=== PATIENT | male | born 1945 | race Caucasian/White ===

== ENCOUNTER 2019-05-13 19:35 | Emergency (ER) | payer OTHER ==
[2019-05-13] MEDS ORDERED: Ketorolac 30 MG/ML SDV IVPUSH ONE ×2 (19:57→21:48)
[2019-05-13] MEDS ORDERED: Sodium Chloride 0.9% 1,000 ML IV ONE (19:57)
--- NOTE | 2019-05-13 19:57 | EDM.PDOC ---
ED HPI GENERAL MEDICAL PROBLEM - General Chief Complaint: Back Pain or Injury Stated Complaint: PAIN ON LOWER RT SIDE OF BACK Time Seen by Provider: 05/13/19 19:57 Source of Information: Reports: Patient History Limitations: Reports: No Limitations - History of Present Illness INITIAL COMMENTS - FREE TEXT/NARRATIVE: HISTORY AND PHYSICAL: History of present illness: Review of systems: As per history of present illness and below otherwise all systems reviewed and negative. Past medical history: As per history of present illness and as reviewed below otherwise noncontributory. Surgical history: As per history of present illness and as reviewed below otherwise noncontributory. Social history: See social history for further information Family history: As per history of present illness and as reviewed below otherwise noncontributory. Physical exam: General: HEENT: Atraumatic, normocephalic, pupils equal and reactive bilaterally, negative for conjunctival pallor or scleral icterus, mucous membranes moist, TMs normal bilaterally, throat clear, neck supple, nontender, trachea midline. No drooling or trismus noted. No meningeal signs. No hot potato voice noted. Lungs: Clear to auscultation, breath sounds equal bilaterally, chest nontender. Heart: S1S2, regular rate and rhythm without overt murmur Abdomen: Soft, nondistended, nontender. Negative for masses or hepatosplenomegaly. Negative for costovertebral tenderness. Pelvis: Stable nontender. Genitourinary: Deferred. Rectal: Deferred. Skin: Intact, warm, dry. No lesions or rashes noted. Extremities: Atraumatic, moves all extremities per self without difficulty or deficits, negative for cords or calf pain. Neurovascular unremarkable. Neuro: Awake, alert, oriented. Cranial nerves II through XII unremarkable. Cerebellum unremarkable. Motor and sensory unremarkable throughout. Exam nonfocal. Notes: Supportive care measures were reviewed and discussed. Voices understanding and is agreeable to plan of care. Denies any further questions or concerns at this time. Diagnostics: Therapeutics: Prescription: Impression: Plan: Definitive disposition and diagnosis as appropriate pending reevaluation and review of above. Right Flank Pain Score (Numeric/FACES): 7 - Related Data Allergies Allergy/AdvReac Type Severity Reaction Status Date / Time No Known Allergies Allergy Verified 05/13/19 19:55 Home Meds: Home Meds Aspirin [[place] Aspirin EC] 81 mg PO DAILY 03/25/16 [History] Chlorthalidone 25 mg PO DAILY 03/25/16 [History] Krill/Om-3/DHA/EPA/Phospho/Ast [Krill Oil 1,000 mg Softgel] 1 tab PO DAILY 03/25 [History] Losartan Potassium 100 mg PO DAILY 03/25/16 [History] Multivitamin [Multivitamins] 1 tab PO DAILY 03/25/16 [History] Potassium Chloride [Klor-Con 10] 10 meq PO DAILY 03/25/16 [History] Terazosin HCl [Terazosin] 2 mg PO DAILY 03/25/16 [History] amLODIPine [Norvasc] 5 mg PO DAILY 03/25/16 [History] Past Medical History HEENT History: Reports: Other (See Below) Other HEENT History: top and bottom partial Cardiovascular History: Reports: High Cholesterol, Hypertension Respiratory History: Reports: None Gastrointestinal History: Reports: Colon Polyp Genitourinary History: Reports: Renal Calculus Other Genitourinary History: hx kidney stones Musculoskeletal History: Reports: None Psychiatric History: Reports: None Endocrine/Metabolic History: Reports: None Hematologic History: Reports: None Immunologic History: Reports: None Oncologic (Cancer) History: Reports: None Dermatologic History: Reports: None - Past Surgical History Head Surgeries/Procedures: Reports: None Other Neurological Surgeries/Procedures: hx neck surgery fusion with cadaver bone Course - Vital Signs Last Recorded V/S: Last Vital Signs Temp 97.9 F 05/13/19 19:53 Pulse 71 05/13/19 19:53 Resp 18 05/13/19 19:53 BP 117/78 05/13/19 19:53 Pulse Ox 96 05/13/19 19:53 Departure - Discharge Information Referrals: PCP,None [Primary Care Provider] -
[2019-05-13] MEDS ORDERED: Tamsulosin 0.4 MG Cap.ER PO ONE (20:00)
--- NOTE | 2019-05-13 20:02 | EDM.PDOC ---
ED HPI GENERAL MEDICAL PROBLEM - General Chief Complaint: Back Pain or Injury Stated Complaint: PAIN ON LOWER RT SIDE OF BACK Time Seen by Provider: 05/13/19 19:57 - History of Present Illness INITIAL COMMENTS - FREE TEXT/NARRATIVE: HISTORY AND PHYSICAL: History of present illness: Patient is a 74-year-old male with history of urolithiasis was diagnosed and treated 2 weeks prior presents with a concern of low back pain is of some mild nausea no vomiting he denies trauma fever chills or other complaints. Review of systems: As per history of present illness and below otherwise all systems reviewed and negative. Past medical history: As per history of present illness and as reviewed below otherwise noncontributory. Surgical history: As per history of present illness and as reviewed below otherwise noncontributory. Social history: No reported history of drug or alcohol abuse. Family history: As per history of present illness and as reviewed below otherwise noncontributory. Physical exam: HEENT: Atraumatic, normocephalic, pupils reactive, negative for conjunctival pallor or scleral icterus, mucous membranes moist, throat clear, neck supple, nontender, trachea midline. Lungs: Clear to auscultation, breath sounds equal bilaterally, chest nontender. Heart: S1S2, regular, negative for clicks, rubs, or JVD. Abdomen: Soft, nondistended, nontender. Negative for masses or hepatosplenomegaly. Bilateral costovertebral tenderness. Pelvis: Stable nontender. Genitourinary: Deferred. Rectal: Deferred. Extremities: Atraumatic, negative for cords or calf pain. Neurovascular unremarkable. Neuro: Awake, alert, oriented. Cranial nerves II through XII unremarkable. Cerebellum unremarkable. Motor and sensory unremarkable throughout. Exam nonfocal. Diagnostics: CBC CMP UA CT abdomen and pelvis Therapeutics: Saline 1 L bolus and Toradol 30 mg IV Flomax 0.4 mg by mouth Impression: #1 flank pain #2 history of urolithiasis Definitive disposition and diagnosis as appropriate pending reevaluation and review of above. Right Flank Pain Score (Numeric/FACES): 7 - Related Data Allergies Allergy/AdvReac Type Severity Reaction Status Date / Time No Known Allergies Allergy Verified 05/13/19 19:55 Home Meds: Home Meds Aspirin [[place] Aspirin EC] 81 mg PO DAILY 03/25/16 [History] Chlorthalidone 25 mg PO DAILY 03/25/16 [History] Krill/Om-3/DHA/EPA/Phospho/Ast [Krill Oil 1,000 mg Softgel] 1 tab PO DAILY 03/25 [History] Losartan Potassium 100 mg PO DAILY 03/25/16 [History] Multivitamin [Multivitamins] 1 tab PO DAILY 03/25/16 [History] Potassium Chloride [Klor-Con 10] 10 meq PO DAILY 03/25/16 [History] Terazosin HCl [Terazosin] 2 mg PO DAILY 03/25/16 [History] amLODIPine [Norvasc] 5 mg PO DAILY 03/25/16 [History] Past Medical History HEENT History: Reports: Other (See Below) Other HEENT History: top and bottom partial Cardiovascular History: Reports: High Cholesterol, Hypertension Respiratory History: Reports: None Gastrointestinal History: Reports: Colon Polyp Genitourinary History: Reports: Renal Calculus Other Genitourinary History: hx kidney stones Musculoskeletal History: Reports: None Psychiatric History: Reports: None Endocrine/Metabolic History: Reports: None Hematologic History: Reports: None Immunologic History: Reports: None Oncologic (Cancer) History: Reports: None Dermatologic History: Reports: None - Past Surgical History Head Surgeries/Procedures: Reports: None Other Neurological Surgeries/Procedures: hx neck surgery fusion with cadaver bone Social & Family History - Family History Family Medical History: Noncontributory - Tobacco Use Smoking Status *Q: Current Every Day Smoker Years of Tobacco use: 50 Packs/Tins Daily: 1 - Recreational Drug Use Recreational Drug Use: No ED ROS GENERAL - Review of Systems Review Of Systems: ROS reveals no pertinent complaints other than HPI. ED EXAM, GENERAL - Physical Exam Exam: See Below (See dictation) Course - Vital Signs Last Recorded V/S: Last Vital Signs Temp 36.6 C 05/13/19 19:53 Pulse 71 05/13/19 19:53 Resp 18 05/13/19 19:53 BP 117/78 05/13/19 19:53 Pulse Ox 96 05/13/19 19:53 - Orders/Labs/Meds Orders: Active Orders 24 hr Category Date Time Status Sodium Chloride 0.9% [Normal Saline] 1,000 ml Med 05/13/19 19:57 Active IV STAT Medication Orders Sodium Chloride (Normal Saline) 1,000 mls @ 150 mls/hr IV STAT ONE Stop: 05/14/19 02:36 Last Admin: 05/13/19 20:28 Dose: 150 mls/hr Labs: Laboratory Tests 05/13/19 05/13/19 05/13/19 Range/Units 20:15 20:15 20:35 WBC 15.06 H (4.0-11.0) K/uL RBC 5.30 (4.50-5.90) M/uL Hgb 16.6 (13.0-17.0) g/dL Hct 46.9 (38.0-50.0) % MCV 88.5 (80.0-98.0) fL MCH 31.3 (27.0-32.0) pg MCHC 35.4 (31.0-37.0) g/dL RDW Std Deviation 44.5 (28.0-62.0) fl RDW Coeff of Anthony 14 (11.0-15.0) % Plt Count 204 (150-400) K/uL MPV 10.50 (7.40-12.00) fL Neut % (Auto) 79.0 (48.0-80.0) % Lymph % (Auto) 10.2 L (16.0-40.0) % [place] % (Auto) 10.4 (0.0-15.0) % Eos % (Auto) 0.3 (0.0-7.0) % Baso % (Auto) 0.1 (0.0-1.5) % Neut # (Auto) 11.9 H (1.4-5.7) K/uL Lymph # (Auto) 1.5 (0.6-2.4) K/uL [place] # (Auto) 1.6 H (0.0-0.8) K/uL Eos # (Auto) 0.0 (0.0-0.7) K/uL Baso # (Auto) 0.0 (0.0-0.1) K/uL Nucleated RBC % 0.0 /100WBC Nucleated RBCs # 0 K/uL Sodium 139 (136-148) mmol/L Potassium 3.7 (3.5-5.1) mmol/L Chloride 103 (98-107) mmol/L Carbon Dioxide 25.5 (21.0-32.0) mmol/L BUN 21 H (7.0-18.0) mg/dL Creatinine 1.5 H (0.8-1.3) mg/dL Est Cr Clr Drug Dosing 48.86 mL/min Estimated GFR (MDRD) 46.0 ml/min Glucose 103 (74-106) mg/dL Calcium 9.3 (8.5-10.1) mg/dL Total Bilirubin 0.8 (0.2-1.0) mg/dL AST 20 (15-37) IU/L ALT 26 (14-63) IU/L Alkaline Phosphatase 86 (46-116) U/L Total Protein 7.6 (6.4-8.2) g/dL Albumin 3.8 (3.4-5.0) g/dL Globulin 3.8 (2.6-4.0) g/dL Albumin/Globulin Ratio 1.0 (0.9-1.6) Urine Color YELLOW Urine Appearance HAZY Urine pH 7.0 (5.0-8.0) Ur Specific [place] 1.015 (1.001-1.035) Urine Protein NEGATIVE (NEGATIVE) mg/dL Urine Glucose (UA) NEGATIVE (NEGATIVE) mg/dL Urine Ketones 15 H (NEGATIVE) mg/dL Urine Occult Blood LARGE H (NEGATIVE) Urine Nitrite NEGATIVE (NEGATIVE) Urine Bilirubin NEGATIVE (NEGATIVE) Urine Urobilinogen 0.2 (<2.0) EU/dL Ur Leukocyte Esterase NEGATIVE (NEGATIVE) Urine RBC 50-60 (0-2/HPF) Urine WBC 0-3 (0-5/HPF) Ur Epithelial Cells OCCASIONAL (NONE-FEW) Urine Bacteria FEW (NEGATIVE) Meds: Medications Generic Name Dose Route Start Last Admin Trade Name Yoshi PRN Reason Stop Dose Admin Sodium Chloride 1,000 mls @ 150 mls/hr 05/13/19 19:57 05/13/19 20:28 Normal Saline IV 05/14/19 02:36 150 mls/hr STAT ONE Administration Discontinued Medications Generic Name Dose Route Start Last Admin Trade Name Yoshi PRN Reason Stop Dose Admin Ketorolac Tromethamine 30 mg 05/13/19 19:57 05/13/19 20:37 Toradol IVPUSH 05/13/19 19:58 Not Given ONETIME ONE Tamsulosin HCl 0.4 mg 05/13/19 20:00 05/13/19 20:28 Flomax PO 05/13/19 20:01 0.4 mg ONETIME ONE Administration Departure - Departure Time of Disposition: 21:28 Disposition: DC/Tfer to Acute Hospital 02 Condition: Good Clinical Impression: Obstructive uropathy - Discharge Information Referrals: PCP,None [Primary Care Provider] - Forms: ED Department Discharge
--- NOTE | 2019-05-13 20:43 | CT ---
INDICATION: Right flank pain. COMPARISON: CT of the abdomen and pelvis from 02/28/2013 TECHNIQUE: CT examination of the abdomen and pelvis was performed without contrast enhancement using 3 mm thick axial sections from the lung bases through the pubic symphysis. Oral contrast was not administered. Please note that all CT scans at this facility use dose modulation, iterative reconstruction, and/or weight-based dosing when appropriate to reduce radiation dose to as low as reasonably achievable. FINDINGS: In the abdomen, the unenhanced liver, spleen, pancreas, and adrenals are normal in appearance. There is new moderate right hydronephrosis produced by a right proximal ureteral calculus measuring 6 x 5 millimeters located at the superior L4 level. There is moderate right perinephric stranding representing pyelo interstitial backflow. The previously seen right UVJ calculus is no longer present, with no sign of dilatation of the right ureter beyond the calculus described above. There is increased size of several nonobstructive calculi in the lower pole of the right kidney, the largest measuring 6 millimeters in length. There is a new tiny punctate 2 millimeter nonobstructive calculus in the interpolar right kidney. On the left, there is increased size of the nonobstructive calculus in the lower pole measuring 6 millimeters in diameter. There is no sign of any additional left renal or ureteral calculi. There is no sign of left hydronephrosis or hydroureter. The gallbladder is normal in appearance. The abdominal aorta is normal in caliber with no sign of dilatation. There is no sign of retroperitoneal mass or adenopathy. The stomach, loops of small bowel, and colon in the abdomen are normal in appearance. In the pelvis, the appendix is nonvisualized, but there is no sign of an inflammatory process in the area of the appendix. The loops of small bowel and colon in the pelvis are normal in appearance. The prostate remains mildly enlarged but otherwise is normal in appearance. There are 2 new bladder calculi, 1 located on the right measuring 5 millimeters in length and the other located on the left measuring 3 millimeters. The urinary bladder is otherwise normal in appearance. There is no sign of pelvic or inguinal mass or adenopathy. The lung bases are clear. There is mild scoliosis of the lumbar spine convex towards the left. There is stable mild L5-S1 disc degenerative disease. IMPRESSION: CT of the abdomen shows moderate right hydronephrosis produced by a new 6 x 5 millimeter right proximal ureteral calculus located at the superior L4 level. The previously seen right UVJ calculus has passed. Increase in size of nonobstructive calculi in the lower pole of the right kidney and the nonobstructive calculus in the lower pole of left kidney. New tiny nonobstructive calculus in the interpolar right kidney. CT of the pelvis shows 2 new small bladder calculi. No change in mild enlargement of the prostate. Please note that all CT scans at this facility use dose modulation, iterative reconstruction, and/or weight-based dosing when appropriate to reduce radiation dose to as low as reasonably achievable. Dictated by Kamar Mcconnell MD @ May 13 2019 8:28PM Signed by Dr. Kamar Mcconnell @ May 13 2019 8:41PM
[2019-05-13] MEDS ORDERED: Ondansetron 4 MG/2 ML SDV IVPUSH ONE (21:35)
[2019-05-13] MEDS ORDERED: HYDROmorphone 1 MG/ML Syringe IVPUSH ONE (21:35)
[2019-05-14] MEDS ORDERED: HYDROmorphone 1 MG/ML Syringe IVPUSH ONE ×3 (00:20→03:46)
[2019-05-14] MEDS ORDERED: Ketorolac 15 MG/ML SDV IVPUSH ONE (03:47)
[2019-05-14 03:59] VITALS: BP 130/76
== END 2019-05-14 04:36 ==
LOC: MW.ED 19:35
DX: N13.2 Hydronephrosis with renal and ureteral calculous obstruction (principal); I10 Essential (primary) hypertension; F17.210 Nicotine dependence, cigarettes, uncomplicated; Z79.82 Long term (current) use of aspirin; Z79.899 Other long term (current) drug therapy
CPT/HCPCS: 36415; 74176; 80053; 81001; 85025; 96361; 96374; 96375; 96376; 99285; A9270; J1170; J1885; J2405; J7040; 99283

== ENCOUNTER 2021-04-15 07:08 | Day surgery (SDC) | payer MEDICARE, OTHER ==
[~2021-04-15 07:08] MED LIST: Lactated Ringers 1,000 ML IV SCH; Midazolam 1 MG/ML 2 ML SDV ONE; Propofol 200 MG/20 ML SDV ONE
--- NOTE | 2021-04-15 08:08 | PCM.PREANE ---
Preanesthetic Assessment - Anesthesia/Transfusion/Family Hx Anesthesia History: Prior Anesthesia Without Reaction Other Type of Anesthesia Reaction Comment: states he wakes saying silly things or swearing after having anesthesia Transfusion History: No Prior Transfusion(s) - Review of Systems General: No Symptoms Pulmonary: No Symptoms Cardiovascular: Chest Pain (atypical cleared by cardiology negative stress test) Gastrointestinal: No Symptoms Neurological: No Symptoms Other: Reports: None - Physical Assessment NPO Status Date: 04/15/21 NPO Status Time: 00:00 Vital Signs: Last Vital Signs Temp 98.2 F 04/15/21 07:45 Pulse 81 04/15/21 07:45 Resp 16 04/15/21 07:45 BP 135/77 04/15/21 07:45 Pulse Ox 97 04/15/21 07:45 Height: 6 ft Weight: 171 lb ASA Class: 3 Mental Status: Alert & Oriented x3 Airway Class: Mallampati = 2 Dentition: Reports: Dentures, Implants, Missing Tooth/Teeth Thyro-Mental Finger Breadths: 4 Mouth Opening Finger Breadths: 4 ROM/Head Extension: Full Lungs: Clear to Auscultation, Normal Respiratory Effort Cardiovascular: Regular Rate, Regular Rhythm - Allergies Allergies/Adverse Reactions: Allergies Allergy/AdvReac Type Severity Reaction Status Date / Time No Known Allergies Allergy Verified 04/15/21 07:25 - Acknowledgements Anesthesia Type Planned: General Anesthesia Pt an Appropriate Candidate for the Planned Anesthesia: Yes Alternatives and Risks of Anesthesia Discussed w Pt/Guardian: Yes Pt/Guardian Understands and Agrees with Anesthesia Plan: Yes PreAnesthesia Questionnaire HEENT History: Reports: Cataract, Other (See Below) Other HEENT History: wears glasses Cardiovascular History: Reports: Heart Murmur, High Cholesterol, Hypertension Respiratory History: Reports: None Gastrointestinal History: Reports: Colon Polyp Genitourinary History: Reports: BPH, Prostate Disorder, Renal Calculus Other Genitourinary History: hx kidney stones Musculoskeletal History: Reports: Fracture Other Musculoskeletal History: hx fx wrist, ribs Neurological History: Reports: Concussion Psychiatric History: Reports: Depression Endocrine/Metabolic History: Reports: None Hematologic History: Reports: None Immunologic History: Reports: None Oncologic (Cancer) History: Reports: None Dermatologic History: Reports: None - Past Surgical History Head Surgeries/Procedures: Reports: None HEENT Surgical History: Reports: None Cardiovascular Surgical History: Reports: None Respiratory Surgical History: Reports: None GI Surgical History: Reports: Appendectomy, Colonoscopy Other GI Surgeries/Procedures: hemorrhoidectomy Male Surgical History: Reports: Lithotripsy ([facility]) Endocrine Surgical History: Reports: None Neurological Surgical History: Reports: C-Spine Other Neurological Surgeries/Procedures: hx neck surgery Musculoskeletal Surgical History: Reports: None Oncologic Surgical History: Reports: None Dermatological Surgical History: Reports: None - SUBSTANCE USE Tobacco Use Status *Q: Current Every Day Tobacco User Tobacco Use Within Last Twelve Months: Cigarettes - HOME MEDS Home Medications: Home Meds Aspirin [[place] Aspirin EC] 81 mg PO DAILY 03/25/16 [History] Chlorthalidone 25 mg PO DAILY 03/25/16 [History] Krill/Om-3/DHA/EPA/Phospho/Ast [Krill Oil 1,000 mg Softgel] 1,000 mg PO DAILY 03/25/16 [History] Losartan Potassium 100 mg PO DAILY 03/25/16 [History] Multivitamin [Multivitamins] 1 tab PO DAILY 03/25/16 [History] Potassium Chloride [Klor-Con 10] 10 meq PO DAILY 03/25/16 [History] Terazosin HCl [Terazosin] 2 mg PO BEDTIME 03/25/16 [History] amLODIPine [Norvasc] 5 mg PO DAILY 03/25/16 [History] Ascorbate Calcium [Vitamin C] 500 mg PO DAILY 04/10/21 [History] Nitroglycerin 0.4 mg SL ASDIRECTED PRN 04/10/21 [History] Simvastatin 40 mg PO BEDTIME 04/10/21 [History] - CURRENT (IN HOUSE) MEDS Current Meds: Current Medications Lactated Ringer's (Ringers, Lactated) 1,000 mls @ 125 mls/hr IV ASDIRECTED AJ Last Admin: 04/15/21 07:43 Dose: 125 mls/hr Documented by: Discontinued Medications Midazolam HCl (Midazolam 1 Mg/Ml 2 Ml Sdv) Confirm Administered Dose 2 mg .ROUTE .STK-MED ONE Stop: 04/15/21 06:52 Propofol (Propofol 200 Mg/20 Ml Sdv) Confirm Administered Dose 400 mg .ROUTE .STK-MED ONE Stop: 04/15/21 06:52
--- NOTE | 2021-04-15 08:56 | PCM48HPAN ---
Post Anesthesia Note - EVALUATION WITHIN 48HRS OF ANESTHETIC Vital Signs in Normal Range: Yes Patient Participated in Evaluation: Yes Respiratory Function Stable: Yes Airway Patent: Yes Cardiovascular Function Stable: Yes Hydration Status Stable: Yes Pain Control Satisfactory: Yes Nausea and Vomiting Control Satisfactory: Yes Mental Status Recovered: Yes Vital Signs: Last Vital Signs Temp 98.2 F 04/15/21 07:45 Pulse 81 04/15/21 07:45 Resp 16 04/15/21 07:45 BP 135/77 04/15/21 07:45 Pulse Ox 97 04/15/21 07:45
--- NOTE | 2021-04-15 08:56 | PCM.POSTAN ---
POST ANESTHESIA ASSESSMENT - MENTAL STATUS Mental Status: Alert, Oriented - VITAL SIGNS Vital Signs: Last Vital Signs Temp 98.2 F 04/15/21 07:45 Pulse 81 04/15/21 07:45 Resp 16 04/15/21 07:45 BP 135/77 04/15/21 07:45 Pulse Ox 97 04/15/21 07:45 - RESPIRATORY Respiratory Status: Respiratory Rate WNL, Airway Patent, O2 Saturation Stable - CARDIOVASCULAR CV Status: Pulse Rate WNL, Blood Pressure Stable - GASTROINTESTINAL GI Status: No Symptoms - POST OP HYDRATION Hydration Status: Adequate & Stable
--- NOTE | 2021-04-15 09:07 | PCM.OPNOTE ---
- General Post-Op/Procedure Note Date of Surgery/Procedure: 04/15/21 Operative Procedure(s): colonoscopy w bx Findings: see [id number] Pre Op Diagnosis: change in bowel habits Post-Op Diagnosis: polyps Anesthesia Technique: Moderate Sedation Primary Surgeon: Jacques Metzger Pathology: polyps Complications: None Condition: Good
[2021-04-15 09:51] VITALS: BP 124/65; PULSE 64
--- NOTE | 2021-04-15 14:50 | OR ---
SURGEON: Jacques Metzger MD DATE OF PROCEDURE: 04/15/2021 PREOPERATIVE DIAGNOSIS: Increased constipation and change in bowel habits. POSTOPERATIVE DIAGNOSIS: Colon polyp. PROCEDURE PERFORMED: Colonoscopy with biopsy. DESCRIPTION OF PROCEDURE: The patient was taken to the endoscopy room. A time out was called, patient identified, and procedure identified. Diprivan was then administrated. Patient went from awake to sleep, hearing doctor talking or door closing is normal. Perineum inspection and digital examination were then performed. A well- lubricated colonoscope was gently inserted through the rectum, advanced past the rectosigmoid junction, the descending colon, splenic flexure, transverse colon, hepatic flexure, ascending colon, arrived to the cecum. Cecum was identified as dictated in the finding. Then the scope was carefully withdrawn while attention was paid to the mucosal surface for any abnormality. Air will be sucked out during the scope withdrawal. At the rectum, retroflexed to examine any rectal diseases, fistula or hemorrhoids. During mucosal examination, abnormality or polyp was noted; picture taken and biopsy performed. Patient tolerated procedure well. There were no intraoperative complications, and Dr. Metzger was present throughout the whole procedure. FINDINGS: 1. The patient is easily sedated with CHIEF MINISTER and Diprivan. The patient is soundly snoring. 2. Bowel prep is average with moderate amount of liquid stool, no semi-formed stool, no stool ball. 3. Colon rather straightforward. Cecum indicated by ileocecal fold, one-to- one indentation, appendiceal orifice, ScopeGuide is pointing south, and light admittance. Mucosa examined upon scope pulling out. The patient does not have diverticulosis. The patient has two small polyps and in fact, one small polyp is at distance 60 while scope pulling out and removed with cold biopsy forceps. The other one is at 15 cm distance, almost at the rectum, and 1 mm sessile polyp removed with cold biopsy forceps. Otherwise, no other mass, growth, inflammation, stricture, AV malformation, bleeding, none of those. The patient would benefit from repeat colonoscopy on as-needed basis or depends on the polyp pathology as the patient is 76 years old. ANNA / MADONNA /[id number]
== END 2021-04-15 09:54 | disposition home or self-care (01) ==
LOC: MW.SDS 07:08
PROVIDERS: ATTEND Surgery
DX: D12.6 Benign neoplasm of colon, unspecified (principal); I10 Essential (primary) hypertension; E78.00 Pure hypercholesterolemia, unspecified; F17.210 Nicotine dependence, cigarettes, uncomplicated; J44.9 Chronic obstructive pulmonary disease, unspecified; E78.5 Hyperlipidemia, unspecified; Z86.010 Personal history of colon polyps; Z79.82 Long term (current) use of aspirin; Z79.899 Other long term (current) drug therapy
CPT/HCPCS: 45380; 88305; J2250; J2704; J7120

== ENCOUNTER 2024-05-13 01:50 | Emergency (ER) | payer OTHER, MEDICARE ==
[2024-05-13 02:04] LABS: BASOPHILS ABSOLUTE AUTO 0.08 K/uL (0.00-0.20); BASOPHILS PERCENT AUTO 0.7 % (0.0-1.0); EOSINOPHILS ABSOLUTE AUTO 0.27 K/uL (0.00-0.45); EOSINOPHILS PERCENT AUTO 2.4 % (0.0-6.0); HEMATOCRIT 44.9 % (42.0-52.0); HEMOGLOBIN 15.7 g/dL (14.0-18.0); IMMATURE GRAN ABSOLUTE AUTO 0.06 K/uL (0.00-0.05); IMMATURE GRAN PERCENT AUTO 0.5 % (0.0-0.4); LYMPHOCYTES ABSOLUTE AUTO 3.65 K/uL (1.00-4.80); LYMPHOCYTES PERCENT AUTO 32.2 % (24.0-44.0); MEAN CORPUSCULAR HEMOGLOBIN 30.5 pg (28.0-32.0); MEAN CORPUSCULAR VOLUME 87.2 fL (83.0-99.0); MEAN PLATELET VOLUME 9.9 fL (9.4-12.4); MONOCYTES ABSOLUTE AUTO 0.86 K/uL (0.00-0.80); MONOCYTES PERCENT AUTO 7.6 % (0.0-8.0); NEUTROPHILS ABSOLUTE AUTO 6.43 K/uL (1.80-7.70); NEUTROPHILS PERCENT AUTO 56.6 % (41.0-71.0); PLATELET COUNT,PLT 221 K/uL (150-400); RED BLOOD CELL COUNT 5.15 M/uL (4.52-5.90); WHITE BLOOD CELL COUNT,WBC 11.35 K/uL (3.9-11.3)
[2024-05-13 02:32] LABS: ALBUMIN 3.9 g/dL (3.4-5.0); BILIRUBIN TOTAL 0.5 mg/dL (0.2-1.0); CALCIUM 9.3 mg/dL (8.5-10.1); CARBON DIOXIDE,CO2 26.7 mmol/L (21.0-32.0); CREATININE 1.2 mg/dL (0.8-1.3); EST CRCL DRUG DOSING (CG) 56.58 mL/min; POTASSIUM,K 3.6 mmol/L (3.5-5.1); PROTEIN TOTAL,TP 7.7 g/dL (6.4-8.2)
[2024-05-13] MEDS: Nitroglycerin 0.4 MG Tab.SL SL PRN (02:56)
[2024-05-13] MEDS: Aspirin 81 MG Tab.Chew PO ONE (02:56)
[2024-05-13] MEDS: Clopidogrel 75 MG Tab PO ONE (03:15)
[2024-05-13] MEDS: Ondansetron 4 MG/2 ML SDV IVPUSH ONE (03:24)
[2024-05-13] MEDS: Tenecteplase 50 MG Kit IV STA (03:26)
[2024-05-13 03:28] LABS: INR 1.12 (0.86-1.11); PTT,PARTIAL THROMBOPLSTIN TIME 26.9 SEC (23.9-30.7)
[2024-05-13] MEDS: Heparin Sodium 5,000 Units/ML Vial IVPUSH ONE (03:28)
[2024-05-13] MEDS: Heparin Sodium/0.45% NaCl 500 ML IV SCH (03:30)
[2024-05-13] MEDS: Morphine 4 MG/ML Syringe IVPUSH ONE (03:31)
[2024-05-13 04:30] VITALS: BP 135/75; PULSE 72
== END 2024-05-13 05:30 ==
LOC: MW.ED 01:50
DX: I21.3 ST elevation (STEMI) myocardial infarction of unspecified site (principal); I10 Essential (primary) hypertension; E78.00 Pure hypercholesterolemia, unspecified; Z90.49 Acquired absence of other specified parts of digestive tract; Z75.8 Other problems related to medical facilities and other health care
CPT/HCPCS: 36415; 71045; 80053; 84484; 85025; 85610; 85730; 93005; 96365; 96366; 96375; 99285; A9270; J1644; J2405; J3101; 93010; 99291